=== PATIENT | female | born 1995 ===

== ENCOUNTER 2017-06-20 17:10 | Inpatient (IN) | payer OTHER ==
[2017-06-20 18:09] LABS: Hematocrit 39 % (35-47); Hemoglobin 13.1 g/dl (12.0-16.0); Mean Corpuscular HGB Conc 34 g/dl (31-36); Mean Corpuscular Hemoglobin 30 pg (27-31); Mean Corpuscular Volume 89 fL (80-97); Mean Platelet Volume 8 um3 (7.4-10.4); Red Blood Count 4.32 10^6/ul (4.0-5.4); Red Cell Distribution Width 13 % (10.5-15); White Blood Count 7.4 10^3/ul (3.5-10.8)
[2017-06-20 18:24] LABS: ALT 6 U/L (7-52); AST 13 U/L (13-39); Albumin 4.4 g/dL (3.2-5.2); Alkaline Phosphatase 29 U/L (34-104); Anion Gap 5 mmol/L (2-11); BUN/Creatinine Ratio 14.3 (8-20); Blood Urea Nitrogen 10 mg/dL (6-24); CO2 Carbon Dioxide 27 mmol/L (22-32); Calcium 9.6 mg/dL (8.6-10.3); Chloride 102 mmol/L (101-111); EGFR African American 135.8 (>60); EGFR Non-African American 105.6 (>60); Glucose 92 mg/dL (70-100); Potassium 3.7 mmol/L (3.5-5.0); Sodium 134 mmol/L (133-145); Total Protein 7.4 g/dL (6.4-8.9)
--- NOTE | 2017-06-20 18:37 | UC ---
Substance Abuse HPI - HPI Summary HPI Summary: 21F presents with suicidial ideation with a plan today. She states she was talking with her friends who advised her to come to go to [place] for a mental nikhil evulation. - History Of Current Complaint Chief Complaint: EDMentalHealth Stated Complaint: 941 Time Seen by Provider: 06/20/17 17:36 - Allergies/Home Medications Allergies/Adverse Reactions: Allergies Allergy/AdvReac Type Severity Reaction Status Date / Time No Known Allergies Allergy Verified 06/20/17 17:45 PMH/Surg Hx/FS Hx/Imm Hx - Social History Alcohol Use: Weekly Substance Use Type: None Smoking Status (MU): Never Smoked Tobacco Physical Exam Vital Signs: Initial Vital Signs Temp 97.8 F 06/20/17 17:40 Pulse 91 06/20/17 17:40 Resp 16 06/20/17 17:40 BP 117/83 06/20/17 17:40 Pulse Ox 100 06/20/17 17:40
[2017-06-20 18:49] LABS: Acetaminophen < 15 mcg/mL; Alcohol < 10 mg/dL (<10); Salicylate < 2.50 mg/dL (<30)
[2017-06-20 19:04] LABS: TSH (Thyroid Stimulating Horm) 0.99 mcIU/mL (0.34-5.60)
--- NOTE | 2017-06-20 19:15 | ED ---
Psychiatric Complaint - HPI Summary HPI Summary: 21F presents with suicidal thoughts with a plan. She was talking with her friends and states that she expressed that she would kill herself by jumping off a bridge in the middle of the night so she went to [facility] per recommendation of friends. [place] set her here. She states that today the thoughts got worst for a reason she does not feel comfortable telling me. She denies any drug or ETOH use. She has no history of self harm. She has not seen anyone for this prior to today. She states she feels comfortable talking to some of her friends about this but not her family. She states school is causing her increased stress. - History Of Current Complaint Chief Complaint: EDMentalHealth Time Seen by Provider: 06/20/17 17:36 - Allergies/Home Medications Allergies/Adverse Reactions: Allergies Allergy/AdvReac Type Severity Reaction Status Date / Time No Known Allergies Allergy Verified 06/20/17 17:45 PMH/Surg Hx/FS Hx/Imm Hx Endocrine/Hematology History: Denies: Hx Anticoagulant Therapy Cardiovascular History: Denies: Hx Hypertension - Immunization History Date of Tetanus Vaccine: UTD Date of Influenza Vaccine: NO Infectious Disease History: No Infectious Disease History: Denies: Traveled Outside the [place] in Last 30 Days - Family History Known Family History: Positive: Unknown - Social History Alcohol Use: Weekly Substance Use Type: Reports: None Smoking Status (MU): Never Smoked Tobacco Review of Systems Negative: Fever Negative: Chest Pain Negative: Shortness Of Breath Positive: Depressed All Other Systems Reviewed And Are Negative: Yes Physical Exam Triage Information Reviewed: Yes Vital Signs On Initial Exam: Initial Vitals Temp Pulse Resp BP Pulse Ox 97.8 F 91 16 117/83 100 06/20/17 17:40 06/20/17 17:40 06/20/17 17:40 06/20/17 17:40 06/20/17 17:40 Vital Signs Reviewed: Yes Appearance: Positive: Well-Appearing Skin: Positive: Warm, Dry Head/Face: Positive: Normal Head/Face Inspection Eyes: Positive: Normal, Conjunctiva Clear Respiratory/Lung Sounds: Positive: Clear to Auscultation, Breath Sounds Present Cardiovascular: Positive: Normal, RRR Abdomen Description: Positive: Nontender, Soft Bowel Sounds: Positive: Present Musculoskeletal: Positive: Normal Neurological: Positive: Normal Psychiatric: Positive: Depressed - [place] Coma Scale Coma Scale Total: 15 Diagnostics - Vital Signs Vital Signs Temp Pulse Resp BP Pulse Ox 06/20/17 17:40 97.8 F 91 16 117/83 100 - Laboratory Lab Results: Lab Results 06/20/17 06/20/17 Range/Units 18:00 18:00 WBC 7.4 (3.5-10.8) 10^3/ul RBC 4.32 (4.0-5.4) 10^6/ul Hgb 13.1 (12.0-16.0) g/dl Hct 39 (35-47) % MCV 89 (80-97) fL MCH 30 (27-31) pg MCHC 34 (31-36) g/dl RDW 13 (10.5-15) % Plt Count 277 (150-450) 10^3/ul MPV 8 (7.4-10.4) um3 Neut % (Auto) 64.9 (38-83) % Lymph % (Auto) 25.1 (25-47) % [place] % (Auto) 5.8 (1-9) % Eos % (Auto) 3.5 (0-6) % Baso % (Auto) 0.7 (0-2) % Absolute Neuts (auto) 4.8 (1.5-7.7) 10^3/ul Absolute Lymphs (auto) 1.8 (1.0-4.8) 10^3/ul Absolute Monos (auto) 0.4 (0-0.8) 10^3/ul Absolute Eos (auto) 0.3 (0-0.6) 10^3/ul Absolute Basos (auto) 0.1 (0-0.2) 10^3/ul Absolute Nucleated RBC 0 10^3/ul Nucleated RBC % 0 Sodium 134 (133-145) mmol/L Potassium 3.7 (3.5-5.0) mmol/L Chloride 102 (101-111) mmol/L Carbon Dioxide 27 (22-32) mmol/L Anion Gap 5 (2-11) mmol/L BUN 10 (6-24) mg/dL Creatinine 0.70 (0.51-0.95) mg/dL Est GFR ( Amer) 135.8 (>60) Est GFR (Non-Af Amer) 105.6 (>60) BUN/Creatinine Ratio 14.3 (8-20) Glucose 92 (70-100) mg/dL Calcium 9.6 (8.6-10.3) mg/dL Total Bilirubin 0.80 (0.2-1.0) mg/dL AST 13 (13-39) U/L ALT 6 L (7-52) U/L Alkaline Phosphatase 29 L (34-104) U/L Total Protein 7.4 (6.4-8.9) g/dL Albumin 4.4 (3.2-5.2) g/dL Globulin 3.0 (2-4) g/dL Albumin/Globulin Ratio 1.5 (1-3) TSH 0.99 (0.34-5.60) mcIU/mL Salicylates < 2.50 (<30) mg/dL Acetaminophen < 15 mcg/mL Serum Alcohol < 10 (<10) mg/dL Result Diagrams: 06/20/17 18:00 06/20/17 18:00 Lab Statement: Any lab studies that have been ordered have been reviewed, and results considered in the medical decision making process. Course/Dx - Course Course Of Treatment: 21F presents with suicidal thoughts with a plan. She was talking with her friends and states that she expressed that she would kill herself by jumping off a bridge in the middle of the night so she went to [facility] per recommendation of friends. [place] set her here. She states that today the thoughts got worst for a reason she does not feel comfortable telling me. She denies any drug or ETOH use. She has no history of self harm. She has not seen anyone for this prior to today. She states she feels comfortable talking to some of her friends about this but not her family. She states school is causing her increased stress. normal PE. is medically clear for MHE. urine does show a uti so will treat with macrobid. patient evaulated by mental health and feel that needs admission although no beds available so will need to be transfered - Differential Dx/Clinical Impression Differential Diagnosis/HQI/PQRI: Positive: Anxiety, Depression, Suicidal Ideation Provider Diagnosis: Depression, UTI (urinary tract infection) Discharge - Discharge Plan Condition: Stable Disposition: PSYCHIATRIC FACILITY-OTHER Discharge Disposition Comment: pending admission at another psych facility Prescriptions: Nitrofurantoin Monohyd Macro [Macrobid] 100 mg PO BID #13 cap Referrals: [facility] - Ivan LYNCH [Primary Care Provider] -
[2017-06-20 19:24] LABS: Urine Bacteria 1+ (Absent); Urine Bilirubin Negative (Negative); Urine Glucose Negative (Negative); Urine Nitrite Negative (Negative)
[2017-06-20 19:35] LABS: Benzodiazepine Urine Screen None Detected (None Detect)
[2017-06-20] MEDS ORDERED: Nitrofurantoin Macrocrystals* 100 MG CAP PO ONE (20:22)
[2017-06-21] MEDS: Nitrofurantoin Macrocrystals* 100 MG CAP PO SCH ×2 (14:20→21:46)
[2017-06-21] MEDS ORDERED: hydrOXYzine HCL TAB* 25 MG PO PRN (19:42)
[2017-06-21] MEDS ORDERED: Nicotine Patch Removal NOTE PATCH OFF SCH (21:00)
[2017-06-21] MEDS: Nicotine Patch Removal NOTE PATCH OFF SCH (22:34)
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
[2017-06-22] MEDS: Nitrofurantoin Macrocrystals* 100 MG CAP PO SCH ×2 (09:23→20:18)
[2017-06-22] MEDS: Nicotine Patch Removal NOTE PATCH OFF SCH (21:27)
[2017-06-23] MEDS: Nitrofurantoin Macrocrystals* 100 MG CAP PO SCH ×2 (09:26→20:56)
[2017-06-23] MEDS: Nicotine Patch Removal NOTE PATCH OFF SCH ×2 (10:27→20:45)
--- NOTE | 2017-06-23 18:02 | PN ---
Subjective - Subjective Service Type: 47887 Hosp care 15 min low complexity Subjective: Cari reports of doing very well and wants to know when can she go back to her school. Reading a book in her room and appears euthymic. Objective - Appearance Appearance: Thin Framed Dysmorphic Features: No Hygiene: Normal Grooming: Well Kept - Behavior Psychomotor Activities: Normal Exhibits Abnormal Movement: No - Attitude and Relatedness Attitude and Relatedness: Appropriate Eye Contact: Good - Speech Quality: Unpressured Latencies: Normal Quantity: Appropriate - Mood Patient's Decription of Mood: "Fine" - Affect Observed Affect: Good Affect Consistent with: Euthymia - Thought Process Patient's Thought Process: Coherent, Goal Directed Thought Content: No Passive Wish, No Suicidal Planning, No Homicidal Ideation, No Paranoid Ideation - Sensorium Experiencing Hallucinations: No, Sensorium is Clear Type of Hallucinations: Visual: No, Auditory: No, Command: No - Level of Consciousness Level of Consciousness: Alert Orientation: Yes Intact, Yes Orientated to Time, Yes Orientated to Place, Yes Orientated to Person - Impulse Control Impulse Control: Intact - Insight and Judgement Insight and Judgement: Good - Group Participation Particating in Group Activities: Yes - Medication Management Medication Management Adherence: Yes Assessment - Assessment Merits Inpatient Hospitalization: Consolidate Improvements, For Discharge Planning Clinical Impression: Improved significantly and safe for discharge. Plan - Plan Treatment Plan: Name: BRYAN VERDE Birthdate: 1995 [id number] Continued Medication Management: Continue Outpt Medication Medications: Current Medications Hydroxyzine HCl (Atarax Tab*) 25 mg PO Q6H PRN PRN Reason: agitation/anxiety/insomnia Nitrofurantoin Macrocrystals (Macrodantin*) 100 mg PO BID [facility] Stop: 06/25/17 09:01 Last Admin: 06/23/17 09:26 Dose: 100 mg Pharmacy Profile Note (Nicotine Patch Removal Note*) 1 note PATCH OFF [address] [facility] Last Admin: 06/23/17 10:27 Dose: Not Given - Discharge Plan Discharge Plan: Outpatient Follow Up Outpatient Program: Counseling/Psych Services at [facility]
[2017-06-24] MEDS: Nitrofurantoin Macrocrystals* 100 MG CAP PO SCH (08:19)
[2017-06-24 08:27] VITALS: BP 114/80
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
== END 2017-06-24 18:57 | disposition home or self-care (01) | DRG 881 ==
LOC: ED 17:10 → BSU 06-21 11:35
PROVIDERS: ADMIT Psychiatry & Neurology Psychiatry; ATTEND Psychiatry & Neurology Psychiatry
DX: F43.21 Adjustment disorder with depressed mood (principal); F43.25 Adjustment disorder with mixed disturbance of emotions and conduct; N39.0 Urinary tract infection, site not specified; R40.2412 Glasgow coma scale score 13-15, at arrival to emergency department; Z81.8 Family history of other mental and behavioral disorders; Z72.89 Other problems related to lifestyle
CPT/HCPCS: 36415; 80053; 80307; 80320; 80329; 81003; 81015; 84443; 85025; 87086; 99222; 99231; 99238; A9270-GY; G0480